=== PATIENT | male | born 1940 | race Two or more races ===

== ENCOUNTER → 2017-05-03 17:12 | Outpatient (CLI) | payer OTHER ==
[~2017-05-03 17:12] MED LIST: ARICEPT10 MG PO; AVAPRO300 MG PO; AVODART0.5 MG PO; GABAPENTIN300 MG PO; METFORMIN HCL850 MG PO; MIRAPEX0.5 MG PO; NAMENDA10 MG PO; RANITIDINE HCL150 M1 PO; RAPAFLO8 MG PO
== END | disposition home or self-care (01) ==
LOC: LAB 17:12
DX: N30.00 Acute cystitis without hematuria (principal)

== ENCOUNTER 2017-05-25 10:15 | Inpatient (IN) | payer OTHER ==
[~2017-05-25] VITALS: Ht 167.6 cm; Wt 83.9 kg
[2017-05-29] MEDS ORDERED: LOPERAMIDE2 MG PO (09:34)
[2017-05-29] MEDS ORDERED: CYMBALTA60 MG PO (09:35)
[2017-05-29] MEDS ORDERED: METAFOLBIC TAB1 EACH PO (09:35)
[2017-05-29] MEDS ORDERED: CIPRO500 MG PO (09:36)
== END 2017-06-14 13:28 | disposition home or self-care (01) | DRG 707 ==
LOC: SURH 06-05 06:00 → O/R 06-05 06:00 → SURH 06-05 07:00 → MEDI 06-05 14:53 → SURH 06-05 14:53
PROVIDERS: Urology
PROC: 0TJB8ZZ Inspection of Bladder, Via Natural or Artificial Opening Endoscopic (ICD-10-PCS; 2017-06-05)
PROC: 4A12X4Z Monitoring of Cardiac Electrical Activity, External Approach (ICD-10-PCS; 2017-06-05)
PROC: 0VT00ZZ Resection of Prostate, Open Approach (ICD-10-PCS; principal; 2017-06-05 07:00)
PROC: 02HV33Z Insertion of Infusion Device into Superior Vena Cava, Percutaneous Approach (ICD-10-PCS; 2017-06-06)
PROC: 8E0ZXY6 Isolation (ICD-10-PCS; 2017-06-11)
DX: N40.1 Benign prostatic hyperplasia with lower urinary tract symptoms (principal); A41.9 Sepsis, unspecified organism; T81.4XXA Infection following a procedure, initial encounter; A04.72 Enterocolitis due to Clostridium difficile, not specified as recurrent; R33.8 Other retention of urine; E11.9 Type 2 diabetes mellitus without complications; I11.9 Hypertensive heart disease without heart failure; G30.8 Other Alzheimer's disease; F02.80 Dementia in other diseases classified elsewhere, unspecified severity, without behavioral disturbance, psychotic disturbance, mood disturbance, and anxiety; G25.81 Restless legs syndrome; H91.8X3 Other specified hearing loss, bilateral; N41.0 Acute prostatitis; D64.89 Other specified anemias; R31.0 Gross hematuria; K57.30 Diverticulosis of large intestine without perforation or abscess without bleeding

== ENCOUNTER 2018-01-31 08:32 | Day surgery (SDC) | payer OTHER ==
[~2018-01-31 08:32] MED LIST changes: +CIPRO500 MG PO; +CYMBALTA60 MG PO; +LOPERAMIDE2 MG PO; +METAFOLBIC TAB1 EACH PO
== END 2018-01-31 16:30 | disposition home or self-care (01) ==
LOC: AMB-ENDOS 08:32
DX: D12.6 Benign neoplasm of colon, unspecified (principal); Z85.038 Personal history of other malignant neoplasm of large intestine; K64.8 Other hemorrhoids

== ENCOUNTER → 2018-11-23 | Outpatient (CLI) | payer OTHER | END | disposition home or self-care (01) | LOC: NUCLEAR 07:00 | DX: C18.2 Malignant neoplasm of ascending colon (principal); Z08 Encounter for follow-up examination after completed treatment for malignant neoplasm | CPT/HCPCS: 78815; A9552 ==

== ENCOUNTER 2018-12-15 15:44 | Inpatient (IN) | payer OTHER ==
[~2018-12-15] VITALS: Ht 165.1 cm; Wt 97.5 kg
[2018-12-20] MEDS ORDERED: MIRAPEX0.5 MG PO (13:28)
[2018-12-20] MEDS ORDERED: INTESTINEX680 M1 PO (13:28)
[2018-12-20] MEDS ORDERED: HYDROCHLOROTH12.5 M1 PO (13:28)
[2018-12-20] MEDS ORDERED: CEFDINIR300 MG PO (13:28)
[2018-12-20] MEDS ORDERED: PANTOPRAZOLE SO40 MG PO (13:28)
[2018-12-20] MEDS ORDERED: AVAPRO150 MG PO (13:28)
[2018-12-20] MEDS ORDERED: NAMENDA10 MG PO (13:28)
[2018-12-20] MEDS ORDERED: XOPENEX0.63 MG/3 IH (13:48)
== END 2018-12-20 15:16 | disposition home or self-care (01) | DRG 438 ==
LOC: ER 15:44 → SEC-K 16:34 → SURH 16:34
PROVIDERS: ADMIT Internal Medicine Geriatric Medicine
PROC: 4A033R1 Measurement of Arterial Saturation, Peripheral, Percutaneous Approach (ICD-10-PCS; 2018-12-15)
PROC: BW21ZZZ Computerized Tomography (CT Scan) of Abdomen and Pelvis (ICD-10-PCS; principal; 2018-12-16)
PROC: 3E0F7GC Introduction of Other Therapeutic Substance into Respiratory Tract, Via Natural or Artificial Opening (ICD-10-PCS; 2018-12-16)
PROC: BF37ZZZ Magnetic Resonance Imaging (MRI) of Pancreas (ICD-10-PCS; 2018-12-17)
PROC: BB24ZZZ Computerized Tomography (CT Scan) of Bilateral Lungs (ICD-10-PCS; 2018-12-18)
PROC: 02HV33Z Insertion of Infusion Device into Superior Vena Cava, Percutaneous Approach (ICD-10-PCS; 2018-12-18)
PROC: BW30Y0Z Magnetic Resonance Imaging (MRI) of Abdomen using Other Contrast, Unenhanced and Enhanced (ICD-10-PCS; 2018-12-18)
DX: K85.80 Other acute pancreatitis without necrosis or infection (principal); J18.9 Pneumonia, unspecified organism; J45.22 Mild intermittent asthma with status asthmaticus; Q45.3 Other congenital malformations of pancreas and pancreatic duct; J44.9 Chronic obstructive pulmonary disease, unspecified; J20.9 Acute bronchitis, unspecified; D72.828 Other elevated white blood cell count; K80.20 Calculus of gallbladder without cholecystitis without obstruction; N28.1 Cyst of kidney, acquired; I11.9 Hypertensive heart disease without heart failure; K21.9 Gastro-esophageal reflux disease without esophagitis; K76.0 Fatty (change of) liver, not elsewhere classified; G25.81 Restless legs syndrome
CPT/HCPCS: 74182

== ENCOUNTER 2019-05-05 14:33 | Emergency (ER) | payer OTHER ==
[~2019-05-05] VITALS: Ht 167.6 cm; Wt 92.5 kg
[~2019-05-05 14:33] MED LIST changes: +AVAPRO150 MG PO; +CEFDINIR300 MG PO; +HYDROCHLOROTH12.5 M1 PO; +INTESTINEX680 M1 PO; +PANTOPRAZOLE SO40 MG PO; +XOPENEX0.63 MG/3 IH
[2019-05-05] MEDS ORDERED: GLIPIZIDE XL5 MG (14:58)
== END 2019-05-05 20:54 | disposition home or self-care (01) ==
LOC: ER 14:33
DX: J44.1 Chronic obstructive pulmonary disease with (acute) exacerbation (principal); B34.9 Viral infection, unspecified; I10 Essential (primary) hypertension

== ENCOUNTER 2022-02-13 21:37 | Inpatient (IN) | payer OTHER ==
[~2022-02-13] VITALS: Ht 152.4 cm; Wt 68.0 kg
[~2022-02-13 21:37] MED LIST changes: +GLIPIZIDE XL5 MG
--- NOTE | 2022-02-13 21:44 | NUR ---
SE RECIBE PTE ALERTA ACOMPANADO DE ESPOSA EN AMBULANCIA. FAMILIAR REFIERE QUE PTE TIENE FIEBRE DESDE HACE UN PIYUSH
--- NOTE | 2022-02-13 22:18 | NUR ---
SE ORIENTA PTE Y FAMILIAR SOBRE TX A SEGUIR, EL CUAL REFIERE ENTENDER, SE COLECTAN MUESTRAS Y SE CANALIZA PTE UTILIZANDO MEDIDAS ASEPTICAS. SE ADM. MEDICAMENTOS GABRIEL ORDEN MEDICA. PTE MANEJADO POR Hrainder NOEL RN
[2022-02-14] MEDS ORDERED: LOPERAMIDE2 MG (09:35)
[2022-02-14] MEDS ORDERED: METFORMIN HCL850 M1 (09:35)
[2022-02-14] MEDS ORDERED: VITAMIN C1000 MG (09:36)
[2022-02-14] MEDS ORDERED: CLOTRIMAZOLE-BE15 G1 (09:36)
[2022-02-14] MEDS ORDERED: FINASTERIDE5 MG (09:36)
[2022-02-14] MEDS ORDERED: TAMSULOSIN HCL0.4 MG (09:36)
== END 2022-02-23 17:23 | disposition home or self-care (01) | DRG 689 ==
LOC: ER 21:37 → MEDI 02-14 04:50
PROVIDERS: ADMIT Internal Medicine; ATTEND Internal Medicine
PROC: 4A12X4Z Monitoring of Cardiac Electrical Activity, External Approach (ICD-10-PCS; principal; 2022-02-14)
PROC: 02HV33Z Insertion of Infusion Device into Superior Vena Cava, Percutaneous Approach (ICD-10-PCS; 2022-02-17)
DX: N39.0 Urinary tract infection, site not specified (principal); A41.9 Sepsis, unspecified organism; Z16.12 Extended spectrum beta lactamase (ESBL) resistance; N17.8 Other acute kidney failure; B96.29 Other Escherichia coli [E. coli] as the cause of diseases classified elsewhere; N40.1 Benign prostatic hyperplasia with lower urinary tract symptoms; Z74.01 Bed confinement status; E78.5 Hyperlipidemia, unspecified; G30.9 Alzheimer's disease, unspecified; F02.80 Dementia in other diseases classified elsewhere, unspecified severity, without behavioral disturbance, psychotic disturbance, mood disturbance, and anxiety; E86.0 Dehydration; Z20.822 Contact with and (suspected) exposure to COVID-19; I11.0 Hypertensive heart disease with heart failure; I50.9 Heart failure, unspecified